=== PATIENT | male | born 1960 | race Caucasian/White ===

== ENCOUNTER 2020-06-10 08:29 | Inpatient (IN) | payer BC ==
[2020-06-10] MEDS ORDERED: Enoxaparin Sodium 80 MG/0.8 ML SYRINGE ONE (08:59)
[2020-06-10] MEDS ORDERED: Nitroglycerin 2% Ointment 1 INCH/1 GM Packet ONE (08:59)
[2020-06-10 12:43] VITALS: BMI 28.2
[2020-06-10 12:59] LABS: Troponin I 0.109 ng/mL (< 0.028)
[2020-06-10 15:29] LABS: Troponin I 0.209 ng/mL (< 0.028)
[2020-06-10] MEDS ORDERED: metFORMIN 500 MG TAB PO SCH (17:00)
[2020-06-10] MEDS ORDERED: Montelukast Sodium 10 mg Tablet PO SCH (21:00)
[2020-06-10] MEDS ORDERED: Enoxaparin Sodium 100 MG/ML SYRINGE SC SCH (21:00)
[2020-06-10] MEDS ORDERED: Communication Order-Pharmacy FS SCH (21:00)
[2020-06-10] MEDS ORDERED: Atorvastatin Calcium 40 MG TAB PO SCH (21:00)
[2020-06-10] MEDS: Metoprolol Tartrate 25 MG TAB PO SCH (21:40)
[2020-06-10 23:52] LABS: SARS-CoV-2 PCR by NAA Not Detected (NotDetected)
[2020-06-11 04:58] LABS: Cardiac Risk 7.1 (Less than 4.5); Cholesterol 235 mg/dl (< 200 Desired); HDL Cholesterol 33 mg/dL (>60 Neg Risk); Triglycerides 552 mg/dL (Less than 150)
[2020-06-11] MEDS ORDERED: Aspirin 81 mg Enteric Coated Tablet PO SCH (07:00)
[2020-06-11] MEDS: Metoprolol Tartrate 25 MG TAB PO SCH (07:50)
[2020-06-11] MEDS ORDERED: Lidocaine 1% PF 5 ML VIAL ONE (08:14)
[2020-06-11] MEDS ORDERED: Nitroglycerin 50 MG/250 ML BOT 250 ML ONE (08:15)
[2020-06-11] MEDS ORDERED: Heparin 10,000 UNITS/ 10 ML VIAL ONE (08:15)
[2020-06-11] MEDS ORDERED: Verapamil 5 MG/2 ML VIAL ONE (08:16)
[2020-06-11] MEDS ORDERED: Bivalirudin 250 MG VIAL ONE (08:16)
[2020-06-11] MEDS ORDERED: Adenosine 6 MG/2 ML VIAL ONE (08:16)
[2020-06-11] MEDS ORDERED: Midazolam HCl 2 mg/2 ml Vial ONE ×2 (08:32→09:15)
[2020-06-11] MEDS ORDERED: Fentanyl 100 MCG/2 ML VIAL ONE (08:32)
[2020-06-11] MEDS ORDERED: Amlodipine 10 MG TAB PO SCH (09:00)
[2020-06-11] MEDS ORDERED: Empagliflozin 10 MG TAB PO SCH (09:00)
[2020-06-11] MEDS ORDERED: TICAGRELOR 90 MG TABLET ONE (09:25)
[2020-06-11] MEDS ORDERED: Sodium Chloride 0.9% 1,000 ML IV SCH (10:30)
[2020-06-11 12:31] VITALS: BP 135/79; TEMP 98.3
[2020-06-11] MEDS ORDERED: TICAGRELOR 90 MG TABLET PO SCH (21:00)
[2020-06-12] MEDS ORDERED: Empagliflozin 10 MG TAB PO SCH (09:00)
== END 2020-06-11 16:09 | disposition home or self-care (01) | DRG 247 ==
LOC: CSHERS 08:29 → CSHTELE 09:47 → INTOOBSV 12:04 → CSHTELE 12:04 → UNDOADMOB 12:04 → OBSVTOIN 17:28
PROVIDERS: ADMIT Hospitalist; ATTEND Hospitalist
PROC: B2101ZZ Fluoroscopy of Single Coronary Artery using Low Osmolar Contrast (ICD-10-PCS; principal; 2020-06-11)
PROC: 027135Z Dilation of Coronary Artery, Two Arteries with Two Drug-eluting Intraluminal Devices, Percutaneous Approach (ICD-10-PCS; 2020-06-11)
DX: I21.4 Non-ST elevation (NSTEMI) myocardial infarction (principal); I25.110 Atherosclerotic heart disease of native coronary artery with unstable angina pectoris; E11.9 Type 2 diabetes mellitus without complications; I10 Essential (primary) hypertension; Z79.82 Long term (current) use of aspirin; Z20.822 Contact with and (suspected) exposure to COVID-19
CPT/HCPCS: 36415; 80061; 87635; 92928; 93005; 93306; 93458; 96372; 99152; 99153; C1874; C1887; C9600; G0378; J0153; J0583; J1644; J1650; J2250; J3010; U0003; U0005